=== PATIENT | male | born 1965 | race Caucasian/White ===

== ENCOUNTER 2017-12-08 05:32 | Day surgery (SDC) | payer OTHER ==
--- NOTE | 2017-12-07 18:15 | Pre-Procedure Note/Attestation ---
Pre-Procedure Note/Attestation Complete Prior to Procedure Planned Procedure: right Procedure Narrative: 1. Reconstruction right upper eyelid. 2. Right post auricular skin graft. Indications for Procedure Pre-Operative Diagnosis: Right upper eyelid cicatrix Attestation I attest that I discussed the nature of the procedure; its benefits; risks and complications; and alternatives (and the risks and benefits of such alternatives ), prior to the procedure, with the patient (or the patient's legal transportation services representative). I attest that, if there was a reasonable possibility of needing a blood transfusion, the patient (or the patient's legal transportation services representative) was given the [facility] standardized written summary, pursuant to the Brad Óscar Blood Safety Act ([place] Health and Safety Code # 1645, as amended). I attest that I re-evaluated the patient just prior to the surgery and that there has been no change in the patient's H&P, by Dr. Pantoja-he is not on staff at [place]-I have reviewed labs, EKG, CXR and H/P and will co-sign.: Nash Ram MD Dec 07, 2017 18:15
--- NOTE | 2017-12-07 18:16 | Brief Operative Note ---
Immediate Post Operative Note Operative Note Chief Complaint: Right upper eyelid cicatrix Pre-op Diagnosis: Right upper eyelid cicatrix Procedure: 1. Reconstruction right upper eyelid. 2. Right post auricular skin graft. Post-op Diagnosis: same as pre-op Surgeon: Tory Ram Water Plant Pump Operator Supervisor: none Additional Surgeons: none Specimen: none Complications: none Condition: stable Fluids: D5LR x 500 Estimated Blood Loss: minimal Drains: none Packing: none Implant(s) used?: No Nash Ram MD Dec 07, 2017 18:16
--- NOTE | 2017-12-07 18:19 | Discharge Instructions ---
Discharge Instructions Discharge Instructions Follow up with: Dr. Ram already scheduled Thu12/09/17 in AM Resume Normal Activity?: No Activity: light activity Pneumonia Vaccine: pt refused vaccine Influenza Vaccine (Dec to May): pt refused vaccine Follow Up Orders Pt has printed post op instructions, which we reviewed in the office during pre op last week. Return to Work/School on: Dec 21, 2017 For Surgical Patients Dressing Care: keep dry and clean May shower: Yes For Congestive Heart Failure Reminder Report to your physician any weight gain of 5 pounds or more in one week. Nash Ram MD Dec 07, 2017 18:19
[~2017-12-08] VITALS: Ht 182.9 cm; Wt 104.3 kg
[2017-12-08] VITALS (12 sets, daily range): BP systolic 113–151; BP diastolic 73–89
[~2017-12-08 05:32] MED LIST: NKM
[2017-12-08] MEDS ORDERED: Dexamethasone 4mg/ml vial IVP ONE (07:00)
[2017-12-08] MEDS ORDERED: ceFAZolin sod 1 GM in D5W 55 ML IV ONE (07:15)
[2017-12-08] MEDS ORDERED: Bacitracin Oint 15gm Tube TOPIC ONE (07:24)
[2017-12-08] MEDS ORDERED: Lidocaine 1% 10mg/ml/Epi 0.005mg/ml 30ml vial INJ ONE (07:25)
[2017-12-08] MEDS ORDERED: Povidone-Iodine 5% opth solution ONE (07:25)
[2017-12-08] MEDS ORDERED: BSS 15ml BTL ONE (07:25)
[2017-12-08] MEDS ORDERED: Zemuron 50mg/5ml Inj IV ONE (07:27)
[2017-12-08] MEDS ORDERED: Succinylcholine 20mg/ml 10ml vial ONE (07:27)
[2017-12-08] MEDS ORDERED: Propofol 200mg/20ml IV ONE (07:28)
[2017-12-08] MEDS ORDERED: Lidocaine 1% MPF 10mg/ml 5ml ONE (07:28)
[2017-12-08] MEDS ORDERED: fentaNYL 100 mcg/2 mL IV ONE (07:28)
[2017-12-08] MEDS ORDERED: Midazolam 2mg/2ml Inj ONE (07:28)
[2017-12-08] MEDS ORDERED: LR 1000ml ONE (07:30)
[2017-12-08] MEDS ORDERED: Sterile Water Irrig 1000ml IRRIG ONE (07:30)
[2017-12-08] MEDS ORDERED: NS Irrig 1000ml ONE (07:30)
[2017-12-08] MEDS ORDERED: LR 1000ml 1,000 ML IVLG SCH (07:35)
--- NOTE | 2017-12-08 07:35 | Anethesia Preoperative Eval ---
Anesthesia Pre-op PMH/ROS General Date of Evaluation: Dec 08, 2017 Anesthesiologist: Edenilson ASA Score: ASA 2 Mallampati Score Class I : Soft palate, uvula, fauces, pillars visible Class II: Soft palate, uvula, fauces visible Class III: Soft palate, base of uvula visible Class IV: Only hard plate visible Mallampati Classification: Class II Surgeon: Leanna Diagnosis: Right eyelid trauma Surgical Procedure: Right eyelid reconstructin with post auricular graft Anesthesia History: none Family History: no anesthesia problems Allergies: Coded Allergies: No Known Allergies (Unverified , 12/07/17) Medications: see eMAR Past Medical History Cardiovascular: Reports: other - HLD; Denies: HTN, CAD, MO, valve dz, arrhythmia Pulmonary: Denies: asthma, COPD, ADEOLA, other Gastrointestinal/Genitourinary: Denies: GERD, CRI, ESRD, other Neurologic/Psychiatric: Reports: depression/anxiety; Denies: dementia, CVA, TIA, other Endocrine: Denies: DM, hypothyroidism, steroids, other HEENT: Denies: cataract (L), cataract (R), glaucoma, NELSON LAGOON (L), NELSON LAGOON (R), other Hematology/Immune: Denies: anemia, DVT, bleeding disorder, other Musculoskeletal/Integumentary: Denies: OA, RA, DJD, DDD, edema, other Other: obesity PSxH Narrative: right eye surgery, left ankle sx Anesthesia Pre-op Phys. Exam Physician Exam Last Vital Signs Date Time Temp Pulse Resp B/P (MAP) Pulse Ox O2 Delivery O2 Flow Rate FiO2 12/08/17 05:57 97.9 50 20 116/73 (87) 97 97.9 12/08/17 05:55 Room Air Constitutional: NAD Cardiovascular: RRR Respiratory: CTA Airway Exam Mallampati Score: Class II MO: full ROM: full Teeth: intact Anesthesia Pre-op A/P Labs see chart Studies Pre-op Studies: EKG - sr Risk Assessment & Plan Assessment: ASA II Plan: GA Status Change Before Surgery: No Pre-Antibiotics Drug: Ancef 2g Given Within 1 Hr of Incision: Yes Khadijah Nix MD Dec 08, 2017 07:35
[2017-12-08] MEDS ORDERED: Labetalol 5mg/ml 20ml vial IV PRN (07:45)
[2017-12-08] MEDS ORDERED: Ketorolac 30mg Inj IV PRN (07:45)
[2017-12-08] MEDS ORDERED: Hydromorphone 0.5mg/0.5ml inj IVP PRN (07:45)
[2017-12-08] MEDS ORDERED: fentaNYL 100 mcg/2 mL IV PRN (07:45)
[2017-12-08] MEDS ORDERED: DiphenhydrAMINE 50mg/ml Inj IVP PRN (07:45)
[2017-12-08] MEDS ORDERED: LORazepam Inj 2mg/ml 1ml IV PRN (07:45)
[2017-12-08] MEDS ORDERED: Midazolam 2mg/2ml Inj IVP PRN (07:45)
--- NOTE | 2017-12-08 08:56 | Immediate Post-Op Evaluation ---
Immediate Post-Op Evalulation Immediate Post-Op Evalulation Procedure: Right eyelid reconstruction with post auricular graft Date of Evaluation: Dec 08, 2017 Time of Evaluation: 08:58 IV Fluids: 800 Blood Products: 0 Estimated Blood Loss: min Urinary Output: 0 Blood Pressure Systolic: 151 Blood Pressure Diastolic: 89 Pulse Rate: 52 Respiratory Rate: 15 O2 Sat by Pulse Oximetry: 100 Temperature (Fahrenheit): 97.3 Pain Score (1-10): 0 Nausea: No Vomiting: No Complications 0 Patient Status: awake, reacts, patent, none Hydration Status: adequate Drug: Ancef 2g Given Within 1 Hr of Incision: Yes Time Given: 07:45 Khadijah Nix MD Dec 08, 2017 08:56
--- NOTE | 2017-12-08 08:57 | 48 Hour Post Anesthesia Eval ---
Post Anesthesia Evaluation Procedure: Right eyelid reconstruction with post auricular graft Date of Evaluation: Dec 08, 2017 Airway: patent Nausea: No Vomiting: No Pain Intensity: 0 Hydration Status: adequate Cardiopulmonary Status: at baseline Mental Status/LOC: patient returned to baseline Post-Anesthesia Complications: 0 Follow-up care needed: ready to discharge Khadijah Nix MD Dec 08, 2017 08:57
--- NOTE | 2017-12-08 16:45 | Operative Note - Dictated ---
DATE OF OPERATION: 12/08/2017 SURGEON: Nash Ram M.D. ADULT PROTECTIVE CASEWORKER: None. ANESTHESIOLOGIST: Dr. Pyle. ANESTHESIA: LMA general anesthesia and 3 mL of 1% lidocaine and 1000 epinephrine. INDICATION FOR PROCEDURE: The patient had a laceration to his right upper eyelid, was unable to completely close his right upper eyelid due to scar tissue and this is the procedure to reconstruct the right upper eyelid. PREOPERATIVE DIAGNOSIS: The patient had a laceration to his right upper eyelid, was unable to completely close his right upper eyelid due to scar tissue and this is the procedure to reconstruct the right upper eyelid. POSTOPERATIVE DIAGNOSIS: The patient had a laceration to his right upper eyelid, was unable to completely close his right upper eyelid due to scar tissue and this is the procedure to reconstruct the right upper eyelid. FINDINGS: The patient had a laceration to his right upper eyelid, was unable to completely close his right upper eyelid due to scar tissue and this is the procedure to reconstruct the right upper eyelid. PROCEDURE: Reconstruction of right upper eyelid with right postauricular graft, which was 3 x 1 cm. TECHNIQUE: The patient was prepped and draped in the usual manner after a time-out. All agreed to the procedure and equipment required. The aforementioned 1% lidocaine and 1000 epinephrine was injected behind the ear after prep as well as the upper eyelid. I then proceeded behind the right ear to remove the graft. An elliptical incision was made with a 15 blade 3 x 1 cm. This was put in a saline and put aside for few minutes. I then made an incision in the notch in the right upper eyelid and dissected above the muscle and below the epithelium to elevate and release any tension. I then brought the eye lid margin together with a 6-0 silk that I left long and later would loosely Steri-Strip to the upper eyebrow. I then proceeded to take the graft, cut it to size, and anchored with a combination of 6-0 Prolene and 5-0 plain sutures without difficulty. I then irrigated the eye out with saline. The tissue glue was used on the upper eyebrow with attention noted that I covered the eye with the 4 x 4 to make sure none of the glue Mastisol would drip into the eye, which did not. I then loosely placed the 6-0 Prolene sutures with Steri-Strips to hold them in place and keep them out of the eye. In the operating room, the eye lid could open and close. Sponge and needle count was correct. EBL: Less than 3 mL. COUNTS: None. DRAINS: None. The patient was awake, alert, and stable in the operating room and the recovery room 15 minutes later. Nash Ram M.D. DR: LUCAS JOB#: [id number] CC:
== END 2017-12-08 11:15 | disposition home or self-care (01) ==
LOC: SUR 05:32
DX: H02.533 Eyelid retraction right eye, unspecified eyelid (principal); L90.5 Scar conditions and fibrosis of skin; E78.5 Hyperlipidemia, unspecified; F32.9 Major depressive disorder, single episode, unspecified; F41.9 Anxiety disorder, unspecified; E66.9 Obesity, unspecified; F17.200 Nicotine dependence, unspecified, uncomplicated
CPT/HCPCS: 67966; J0330; J0690; J1885; J2250; J2704; J3010; 94003; 94150